=== PATIENT | female | born 1975 | race Caucasian/White ===

== ENCOUNTER 2017-06-07 15:46 | Emergency (ER) | payer SELFPAY ==
[~2017-06-07] VITALS: Wt 65.0 kg
[~2017-06-07 15:46] MED LIST: FER325 PO; METF500T4 PO; PREN-39 PO
[2017-06-07] MEDS ORDERED: KETOROLAC 30 MG INJ IM STA (16:45)
[2017-06-07 16:57] LABS: URINE BLOOD (Dip) POC 1+ (NEGATIVE)
[2017-06-07 17:23] LABS: BASOPHILS % 0.3 % (0.0-2.0); EOSINOPHILS # 0.1 10^3/ul (0.0-0.5); EOSINOPHILS % 1.9 % (0.0-7.0); HEMOGLOBIN 11.9 g/dl (12.0-16.0); LYMPHOCYTES # 1.8 10^3/ul (0.8-2.9); MEAN CORPUSCULAR HEMOGLOBIN 31.1 pg (29.0-33.0); MEAN CORPUSCULAR HGB CONC 33.1 g/dl (32.0-37.0); MEAN PLATELET VOLUME 10.9 fl (7.4-10.4); MONOCYTE # 0.2 10^3/ul (0.3-0.9); MONOCYTES % 3.3 % (0.0-11.0); NEUTROPHIL # 5.1 10^3/ul (1.6-7.5); NEUTROPHILS % 70.2 % (39.0-77.0); PLATELET COUNT 323 10^3/UL (140-415); RED BLOOD COUNT 3.83 10^6/ul (4.20-5.40); RED CELL DISTRIBUTION WIDTH 11.5 % (11.5-14.5); WHITE BLOOD COUNT 7.3 10^3/ul (4.8-10.8)
--- NOTE | 2017-06-07 17:48 | RADRPT ---
PROCEDURE: CT abdomen and pelvis without contrast. CLINICAL INDICATION: Abdominal pain. TECHNIQUE: CT of the abdomen and pelvis without contrast was performed on a multidetector high-reso lution CT scanner. Coronal and sagittal reformatted images were obtained from the axial source image s. Images were reviewed on a high-resolution PACS workstation. The total exam CTDI equals 10.61 mGy and the total exam DLP equals 513.01 mGy-cm. One or more of the following dose reduction techniques were used: - Automated exposure control. - Adjustment of the mA and/or kV according to patient size. - Use of iterative reconstruction technique. COMPARISON: None available. FINDINGS: Visualized lower thorax: The visualized lung bases are clear. The visualized heart is unremarkable. Hepatobiliary system and spleen: The liver is grossly unremarkable. There is no intra or extrahepat ic biliary ductal dilatation. The gallbladder is grossly unremarkable. The spleen is grossly unremar kable. The pancreas is grossly unremarkable. Adrenal glands and genitourinary system: The adrenal glands are grossly unremarkable. There is no n ephrolithiasis or hydronephrosis. The urinary bladder is grossly unremarkable. The uterus and adnex a are grossly unremarkable. Gastrointestinal system: There is sigmoid, descending, and ascending colonic diverticulosis with fo dheeraj wall thickening and pericolonic inflammatory change at the mid sigmoid colon, consistent with di verticulitis. There are additional the appendix is not identified, but there are no secondary findin gs of appendicitis. Peritoneum, vascular, and lymphatics: There is no free intraperitoneal air or focal drainable colle ction within the abdomen or pelvis. There is trace fluid in the left maximo pelvis, likely reactive in nature. There is no mesenteric or retroperitoneal adenopathy. The aorta is nonaneurysmal. Musculoskeletal system and soft tissues: There is an old fracture of the anterior superior T12 vert ebral body. There are no concerning osseous lesions. The soft tissues are unremarkable. IMPRESSION: 1. Sigmoid diverticulitis. No free air or focal drainable collection within the abdomen or pelvis. 2. Trace free fluid in the left maximo pelvis, likely reactive in nature. These findings discussed with Edyta Juan in the ED at 1739 hours on 06/07/2017. RPTAT: HLBP .Matias Sierra MD, MD Date Time Electronically viewed and signed by .Matias Sierra MD, MD on 06/07/2017 17:47 .P/
[2017-06-07 17:49] LABS: ALBUMIN 4.4 g/dl (3.3-4.9); ALBUMIN/GLOBULIN RATIO 1.37; BILIRUBIN,INDIRECT 0.2 mg/dl (0-1.1); BILIRUBIN,TOTAL 0.2 mg/dl (0.2-1.3); CALCIUM 9.6 mg/dl (8.4-10.2); CREATININE 0.75 mg/dl (0.44-1.00); POTASSIUM 3.5 mmol/L (3.5-5.1); TOTAL PROTEIN 7.6 g/dl (6.1-8.1)
--- NOTE | 2017-06-07 17:57 | ERD ---
ER Documentation Chief Complaint Date/Time DATE: 06/07/17 TIME: 17:52 Chief Complaint ABD PAIN X3 DAYS, NO N/V/D HPI This is a 41-year-old female presenting to emergency department with abdominal pain 4 days. Patient states she has pain to left lower quadrant of the abdomen and states pain does not radiate. States pain is intermittent and rates pain 7/10. Describes pain as sharp and stabbing. No lower back or flank pain. No urinary incontinence, dysuria or hematuria. No urinary frequency or urgency. No vaginal bleeding or vaginal discharge. No pelvic pain. No nausea , vomiting or diarrhea. No constipation. Last bowel movement was today. Last menstrual cycle 06/01/2017. ROS All systems reviewed and are negative except as per history of present illness. Medications Home Meds Active Scripts Naproxen* (Naprosyn*) 500 Mg Tablet, 500 MG PO BID Y for PAIN AND/OR INFLAMMATION, #30 TAB Prov:STEFANO NICHOLS NP 06/07/17 Metronidazole* (Flagyl*) 500 Mg Tablet, 500 MG PO TID for 10 Days, TAB Prov:STEFANO NICHOLS NP 06/07/17 Ciprofloxacin Hcl* (Ciprofloxacin Hcl*) 500 Mg Tablet, 500 MG PO BID for 10 Days , TAB Prov:STEFANO NICHOLS NP 06/07/17 Reported Medications Vits W-Ca,Fe,Fa(<1MG) ( Vitamins) 1 Tab Tablet, 1 TAB PO DAILY 01/22/14 Metformin Hcl* (Metformin Hcl*) 500 Mg Tablet, 500 MG PO HS 01/20/14 Ferrous Sulfate* (Ferrous Sulfate*) 325 Mg Tabec, 325 MG PO DAILY 01/20/14 Allergies Allergies: Coded Allergies: hydromorphone (Verified Allergy, Unknown, 06/07/17) PMhx/Soc Medical and Surgical Hx: pt denies Medical Hx, pt denies Surgical Hx Hx Alcohol Use: No Hx Substance Use: No Hx Tobacco Use: No Smoking Status: Never smoker Physical Exam Vitals Vital Signs Date Time Temp Pulse Resp B/P Pulse Ox O2 Delivery O2 Flow Rate FiO2 06/07/17 16:32 97.5 87 18 134/74 97 Physical Exam Const: No acute distress, alert Head: Atraumatic Eyes: Normal Conjunctiva ENT: Normal External Ears, Nose and Mouth. Neck: Full range of motion..~ No meningismus. Resp: Clear to auscultation bilaterally Cardio: Regular rate and rhythm, no murmurs Abd: Soft, Tenderness to left lower quadrant of abdomen, non distended. Normal bowel sounds.Negative Stone sign. No tenderness at McBurney's point Skin: No petechiae or rashes Back: No midline or flank tenderness Ext: No cyanosis, or edema Neur: Awake and alert Psych: Normal Mood and Affect Result Diagram: 06/07/17 1705 06/07/17 1705 Results 24 hrs Laboratory Tests Test 06/07/17 17:04 06/07/17 17:05 Bedside Urine pH (LAB) 5.5 Bedside Urine Protein (LAB) Negative Bedside Urine Glucose (UA) Negative Bedside Urine Ketones (LAB) Negative Bedside Urine Blood 1+ Bedside Urine Nitrite (LAB) Negative Bedside Urine Leukocyte Esterase (L Negative White Blood Count 7.310^3/ul Red Blood Count 3.8310^6/ul Hemoglobin 11.9g/dl Hematocrit 36.0% Mean Corpuscular Volume 94.0fl Mean Corpuscular Hemoglobin 31.1pg Mean Corpuscular Hemoglobin Concent 33.1g/dl Red Cell Distribution Width 11.5% Platelet Count 28659^3/UL Mean Platelet Volume 10.9fl Neutrophils % 70.2% Lymphocytes % 24.0% Monocytes % 3.3% Eosinophils % 1.9% Basophils % 0.3% Nucleated Red Blood Cells % 0.0/100WBC Neutrophils # 5.110^3/ul Lymphocytes # 1.810^3/ul Monocytes # 0.210^3/ul Eosinophils # 0.110^3/ul Basophils # 0.010^3/ul Nucleated Red Blood Cells # 0.010^3/ul Sodium Level 143mmol/L Potassium Level 3.5mmol/L Chloride Level 104mmol/L Carbon Dioxide Level 29mmol/L Anion Gap 14 Blood Urea Nitrogen 12mg/dl Creatinine 0.75mg/dl Glucose Level 115mg/dl Calcium Level 9.6mg/dl Total Bilirubin 0.2mg/dl Direct Bilirubin 0.00mg/dl Indirect Bilirubin 0.2mg/dl Aspartate Amino Transf (AST/SGOT) 23IU/L Alanine Aminotransferase (ALT/SGPT) 35IU/L Alkaline Phosphatase 42IU/L Total Protein 7.6g/dl Albumin 4.4g/dl Globulin 3.20g/dl Albumin/Globulin Ratio 1.37 Lipase 217U/L Current Medications Medications (Trade) Dose Ordered Sig/Beverley Route PRN Reason Start Time Stop Time Status Last Admin Dose Admin Ketorolac Tromethamine (Toradol) 30 mg ONCE STAT IM 06/07/17 16:45 06/07/17 16:47 DC 06/07/17 17:04 Ciprofloxacin (Cipro) 500 mg ONCE ONCE PO 06/07/17 18:30 06/07/17 18:31 DC Metronidazole (Flagyl) 500 mg ONCE ONCE PO 06/07/17 18:30 06/07/17 18:31 DC Procedures/MDM MDM: 41 year old female presents to ER with left lower quadrant abdominal pain x 4 days. Denies nausea, vomiting or diarrhea. No fevers or chills. Patient is afebrile upon arrival to ED and vital signs are in stable. Patient is tender to left lower quadrant on physical exam otherwise unremarkable. Labs, urine and CT abdomen, pelvis ordered. CBC shows no significant anemia or infection. CMP shows no significant electrolyte imbalance. Liver enzymes are normal. Bilirubin is normal. CT abdomen pelvis reviewed by radiologist as sigmoid diverticulitis. No free air or focal drainable collection within the abdomen or pelvis. Trace free fluid in the left hemipelvis likely reactive in nature. Upon reassessment, patient states pain has improved. Patient is tolerating oral liquids. No active vomiting on the ED. Consulted Dr. Antunez regarding this patient and we agree that patient is appropriate for outpatient management with Cipro and Flagyl. Patient given first dose of Cirpo and Flagyl here in the ED. Patient likely has diverticulitis however differential diagnosis includes but not limited to acute appendicitis, diverticulitis, diverticulosis, bowel obstruction, constipation, infectious colitis, irritable bowel syndrome, inflammatory bowel disease, viral gastroenteritis, abdominal aortic aneurysm, food intolerance, celiac disease, UTI, pyelonephritis, nephrolithiasis, acute urinary retention or colorectal cancer. I doubt any emergent conditions such as appendicitis, bowel obstruction, abdominal aortic aneurysm at this time due to normal vital signs and normal lab results. Patient is appropriate for outpatient management. Patient given prescription for Cipro, Flagyl and Naprosyn. Instructed patient to follow-up with primary care provider in the next 2-3 days for reassessment and additional management. Return to ED for any high fever, chest pain, difficulty breathing, shortness breath, wheezing, vomiting, diarrhea, abdominal pain or any new or worsening symptoms. Patient verbalizes understanding. All questions answered at discharge. Disclaimer: Inadvertent spelling and grammatical errors are likely due to EHR/ dictation software use and do not reflect on the overall quality of patient care. Also, please note that the electronic time recorded on this note does not necessarily reflect the actual time of the patient encounter. Departure Diagnosis: Primary Impression: Diverticulitis Diverticulitis site: unspecified part of intestinal tract Diverticulitis bleeding: without bleeding Diverticulitis complication: without perforation or abscess Qualified Code: K57.92 - Diverticulitis of intestine without perforation or abscess without bleeding, unspecified part of intestinal tract Condition: Stable STEFANO NICHOLS NP Jun 07, 2017 17:57
[2017-06-07] MEDS ORDERED: CIPR500T4 PO (18:05)
[2017-06-07] MEDS ORDERED: NAPR-260 PO (18:05)
[2017-06-07] MEDS ORDERED: METR500T PO (18:05)
[2017-06-07] MEDS ORDERED: CIPROFLOXACIN 500 MG TAB PO ONE (18:30)
[2017-06-07] MEDS ORDERED: metroNIDAZOLE 500 MG TAB PO ONE (18:30)
== END 2017-06-07 18:55 | disposition home or self-care (01) ==
LOC: E/R 15:46 → FTE 18:55
DX: K57.92 Diverticulitis of intestine, part unspecified, without perforation or abscess without bleeding (principal); Z79.84 Long term (current) use of oral hypoglycemic drugs
CPT/HCPCS: 74176; 80053; 81003; 83690; 85025; 96372; 99285; J1885